=== PATIENT | female | born 1975 | race Caucasian/White ===

== ENCOUNTER 2018-04-22 12:24 | Emergency (ER) | payer OTHER, BC ==
[2018-04-22 14:06] LABS: URINE BLOOD (Dip) POC Trace-intact (NEGATIVE); URINE GLUCOSE (Dip) POC Negative (NEGATIVE); URINE KETONES (Dip) POC Negative (NEGATIVE); URINE LEUKOCYTE EST (Dip) POC Negative (NEGATIVE); URINE NITRITE (Dip) POC Negative (NEGATIVE); URINE TOTAL PROTEIN POC Negative (NEGATIVE)
[2018-04-22 14:06] LABS: URINE PH (Dip) POC 6.5 (5.0-8.5)
[2018-04-22] MEDS: KETOROLAC 60 MG INJ IM (14:20)
== END 2018-04-22 16:05 | disposition home or self-care (01) ==
LOC: FTE 12:24
DX: J34.89 Other specified disorders of nose and nasal sinuses (principal); F17.210 Nicotine dependence, cigarettes, uncomplicated
CPT/HCPCS: 81003; 81025; 96372; 99284-25

== ENCOUNTER 2018-07-18 08:26 | Emergency (ER) | payer OTHER ==
[2018-07-18] MEDS: KETOROLAC 60 MG INJ IM (10:08)
== END 2018-07-18 11:19 | disposition home or self-care (01) ==
LOC: FTE 08:26
DX: R05 Cough (principal); R51 Headache; Z79.82 Long term (current) use of aspirin
CPT/HCPCS: 81025; 96372; 99284-25

== ENCOUNTER 2018-08-06 22:44 | Emergency (ER) | payer OTHER ==
[2018-08-07] MEDS: KETOROLAC 30 MG INJ IM (02:14)
== END 2018-08-07 03:20 | disposition home or self-care (01) ==
LOC: FTE 22:44
DX: S43.401A Unspecified sprain of right shoulder joint, initial encounter (principal); S80.02XA Contusion of left knee, initial encounter; W01.0XXA Fall on same level from slipping, tripping and stumbling without subsequent striking against object, initial encounter; Y92.9 Unspecified place or not applicable; Z79.82 Long term (current) use of aspirin
CPT/HCPCS: 73030; 73030-RT; 73562; 96372; 99284-25